=== PATIENT | female | born 1930 | race Caucasian/White ===

== ENCOUNTER 2018-11-24 13:07 | Emergency (ER) | payer MEDICARE, MEDICAID ==
[~2018-11-24] VITALS: Ht 157.5 cm; Wt 60.0 kg
[~2018-11-24 13:07] MED LIST: ACET-3161 PO; ASPI-1393 PO; CHOL100046 PO; CRES10 PO; FERR-43 PO; ISOS60TA4 PO; LEVO50TA8 PO; LINA1TAB PO; LUBI24CA5 PO; MELO-106 PO; METO100T16 PO; SIME125C PO; TRAM50TA PO; VALS320T16 PO
[2018-11-24 13:15] VITALS: BP 131/65
== END 2018-11-24 17:03 | disposition left against medical advice (07) ==
LOC: ER 14:21
DX: Z53.21 Procedure and treatment not carried out due to patient leaving prior to being seen by health care provider (principal); I10 Essential (primary) hypertension
CPT/HCPCS: 93005

== ENCOUNTER 2018-11-25 17:49 | Inpatient (IN) | payer MEDICARE, MEDICAID ==
[~2018-11-25] VITALS: Ht 157.5 cm; Wt 62.1 kg
[2018-11-25] MEDS ORDERED: SODIUM CHLORIDE 0.9% 1,000 ML IV ONE (18:57)
[2018-11-25] MEDS ORDERED: ONDANSETRON HCL 4MG/2ML INJ IV STA (18:57)
[2018-11-25 19:38] LABS: BASOPHILS % 0.6 % (0.0-2.0); EOSINOPHILS % 2.1 % (0.0-5.0); HEMATOCRIT. 39.8 % (36.0-48.0); HEMOGLOBIN. 13.1 g/dL (12.0-16.0); LYMPHOCYTES % 21.2 % (20.0-50.0); MEAN CORPUSCULAR HEMOGLOBIN 30.8 pg (28.0-32.0); MEAN CORPUSCULAR VOLUME 93.3 fL (81.0-99.0); MEAN PLATELET VOLUME 9.1 fl (7.4-10.4); MONOCYTES % 10.4 % (2.0-8.0); NEUTROPHILS % 65.7 % (40.0-76.0); PLATELET 272 x1000/uL (130-400); RED BLOOD CELL COUNT 4.26 mill/uL (4.2-5.4); RED CELL DISTRIBUTION WIDTH 14.6 % (11.6-14.6)
[2018-11-25 19:41] LABS: CHLORIDE 96 mEq/L (98-107); INR 0.9; PROTHROMBIN TIME 9.8 sec (9.6-11.0)
[2018-11-25] MEDS ORDERED: HYDRALAZINE 20MG/ML VIAL IV ONE (20:00)
[2018-11-25] MEDS ORDERED: ALBUTEROL (0.083%) 2.5MG/3ML NEB HHN SCH (20:30)
[2018-11-25] MEDS ORDERED: FUROSEMIDE 100MG/10ML VIAL IV ONE (20:30)
[2018-11-25] MEDS ORDERED: DEXTROSE 50% WATER 50ML SYRINGE IV ONE (20:30)
[2018-11-25] MEDS ORDERED: SODIUM BICARBONATE 8.4% 1 MEQ/ML 50ML SYR IV ONE (20:30)
[2018-11-25] MEDS ORDERED: CALCIUM GLUCONATE 1,000 MG in DEXT 5% WATER 100 ML IV ONE (20:30)
[2018-11-25] MEDS ORDERED: SODIUM POLYSTYRENE SULFONATE 15 G/60 ML BOT PO ONE (20:30)
[2018-11-25] MEDS ORDERED: INSULIN REGULAR (HUMULIN R) 300UNITS/3ML IV ONE (20:30)
[2018-11-25] MEDS ORDERED: DIPHENHYDRAMINE 50MG/ML VIAL IV PRN (21:15)
[2018-11-25] MEDS ORDERED: GUAIFENESIN 200MG/10ML SUGAR FREE UDC PO PRN (21:15)
[2018-11-25] MEDS ORDERED: IPRATROPIUM/ALBUTEROL 0.5-3(2.5)MG/3ML NEB HHN PRN (21:15)
[2018-11-25] MEDS ORDERED: CLONIDINE 0.1MG TABLET PO PRN (21:15)
[2018-11-25] MEDS ORDERED: MAGNESIUM/ALUMINUM HYDROXIDE/SIMETHICONE 30ML UDC PO PRN (21:15)
[2018-11-25] MEDS ORDERED: DOCUSATE SODIUM 100MG CAPSULE PO PRN (21:15)
[2018-11-25] MEDS ORDERED: LORAZEPAM 2MG/ML CPJ IV PRN (21:15)
[2018-11-25] MEDS ORDERED: DEXTROSE 50% WATER 50ML SYRINGE IV PRN (21:15)
[2018-11-25] MEDS ORDERED: HYDRALAZINE 20MG/ML VIAL IV PRN (21:15)
[2018-11-25] MEDS ORDERED: ONDANSETRON HCL 4MG/2ML INJ IV PRN (21:15)
[2018-11-25] MEDS ORDERED: NA PHOS,M-B/NA PHOS,DI-BA ENEMA 118ML PR PRN (22:00)
[2018-11-25] MEDS ORDERED: MORPHINE SULFATE 2 MG/ML CPJ (NOT FOR IM USE) IV PRN (22:30)
[2018-11-25] MEDS ORDERED: HYDROCODONE/ACETAMINOPHEN 10/325MG TABLET PO PRN (22:30)
[2018-11-25 23:30] VITALS: BP 131/37
[2018-11-26] VITALS: BP 131/37
[2018-11-26] MEDS: ACETAMINOPHEN 325MG TABLET PO PRN ×3 (00:43→22:18)
[2018-11-26 03:31] LABS: BASOPHILS % 0.2 % (0.0-2.0); CHLORIDE 100 mEq/L (98-107); EOSINOPHILS % 0.4 % (0.0-5.0); HEMATOCRIT. 33.9 % (36.0-48.0); HEMOGLOBIN. 11.5 g/dL (12.0-16.0); LYMPHOCYTES % 14.1 % (20.0-50.0); MEAN CORPUSCULAR HEMOGLOBIN 30.8 pg (28.0-32.0); MEAN CORPUSCULAR VOLUME 91.1 fL (81.0-99.0); MEAN PLATELET VOLUME 8.9 fl (7.4-10.4); MONOCYTES % 8.7 % (2.0-8.0); NEUTROPHILS % 76.6 % (40.0-76.0); PLATELET 261 x1000/uL (130-400); RED BLOOD CELL COUNT 3.72 mill/uL (4.2-5.4); RED CELL DISTRIBUTION WIDTH 14.3 % (11.6-14.6)
[2018-11-26 03:40] LABS: CREATINE KINASE 106 IU/L (26-192)
[2018-11-26 03:42] LABS: CREATINE KINASE MB FRACTION 2.1 ng/mL (0.5-3.6)
[2018-11-26 04:00] VITALS: BP 136/49
[2018-11-26] MEDS: SODIUM CHLORIDE 0.9% INJ 3ML FLUSH IVF SCH ×3 (06:39→20:50)
[2018-11-26] MEDS: BLOOD SUGAR DIAGNOSTIC STRIP TEST SCH ×4 (07:04→20:50)
[2018-11-26] MEDS: INSULIN LISPRO 100 UNITS/ML SUBCUT SCH ×4 (07:50→20:51)
[2018-11-26 08:00] VITALS: BP 130/37
[2018-11-26] MEDS: ENOXAPARIN 30MG/0.3ML SYR SUBCUT SCH (08:51)
[2018-11-26 12:00] VITALS: BP 148/50
[2018-11-26] MEDS: MEGESTROL ACETATE 400 MG/10 ML UDC PO SCH (12:46)
[2018-11-26] MEDS: PANTOPRAZOLE 40MG DR TABLET PO SCH (12:46)
[2018-11-26] MEDS: SODIUM CHLORIDE 0.45% 1,000 ML IV SCH (12:47)
[2018-11-26 16:00] VITALS: BP 137/44
[2018-11-26 16:37] LABS: CREATINE KINASE 81 IU/L (26-192)
[2018-11-26 19:39] LABS: CLARITY URINE CLEAR (CLEAR); COLOR URINE YELLOW (YELLOW); KETONES URINE NEGATIVE (NEGATIVE); LEUKOCYTE ESTERASE URINE NEGATIVE (NEGATIVE); NITRITE URINE NEGATIVE (NEGATIVE); OCCULT BLOOD URINE NEGATIVE (NEGATIVE); PROTEIN URINE 2+ (NEGATIVE); SPECIFIC GRAVITY URINE 1.012 (1.005-1.030); UROBILINOGEN URINE 0.2 E.U./dL (0.2-1.0)
[2018-11-26 20:36] VITALS: BP 118/42
[2018-11-27] VITALS: BP 115/43
[2018-11-27] MEDS: SODIUM CHLORIDE 0.45% 1,000 ML IV SCH ×2 (03:15→18:00)
[2018-11-27 04:00] VITALS: BP 126/54
[2018-11-27] MEDS: SODIUM CHLORIDE 0.9% INJ 3ML FLUSH IVF SCH ×3 (05:50→21:18)
[2018-11-27] MEDS: BLOOD SUGAR DIAGNOSTIC STRIP TEST SCH ×4 (06:37→21:18)
[2018-11-27] MEDS: INSULIN LISPRO 100 UNITS/ML SUBCUT SCH ×4 (07:50→21:17)
[2018-11-27 08:00] VITALS: BP 145/46
[2018-11-27] MEDS: ENOXAPARIN 30MG/0.3ML SYR SUBCUT SCH (09:03)
[2018-11-27] MEDS: PANTOPRAZOLE 40MG DR TABLET PO SCH (09:03)
[2018-11-27] MEDS: MEGESTROL ACETATE 400 MG/10 ML UDC PO SCH (09:03)
[2018-11-27 12:00] VITALS: BP 124/44
[2018-11-27 16:00] VITALS: BP 133/47
[2018-11-27 20:00] VITALS: BP 118/37
[2018-11-27] MEDS: ACETAMINOPHEN 325MG TABLET PO PRN (21:54)
[2018-11-28] VITALS: BP 118/62
[2018-11-28 03:50] VITALS: BP 137/74
[2018-11-28] MEDS: SODIUM CHLORIDE 0.9% INJ 3ML FLUSH IVF SCH ×2 (05:28→14:59)
[2018-11-28] MEDS: SODIUM CHLORIDE 0.45% 1,000 ML IV SCH ×2 (05:28→17:35)
[2018-11-28] MEDS: FAMOTIDINE 20MG TABLET PO SCH (05:58)
[2018-11-28] MEDS: BLOOD SUGAR DIAGNOSTIC STRIP TEST SCH ×4 (05:58→21:12)
[2018-11-28] MEDS: INSULIN LISPRO 100 UNITS/ML SUBCUT SCH ×4 (07:50→21:08)
[2018-11-28 07:52] LABS: BASOPHILS % 0.5 % (0.0-2.0); EOSINOPHILS % 4.6 % (0.0-5.0); HEMATOCRIT. 27.6 % (36.0-48.0); HEMOGLOBIN. 9.3 g/dL (12.0-16.0); LYMPHOCYTES % 28.3 % (20.0-50.0); MEAN CORPUSCULAR HEMOGLOBIN 30.7 pg (28.0-32.0); MEAN CORPUSCULAR VOLUME 91.1 fL (81.0-99.0); MEAN PLATELET VOLUME 9.3 fl (7.4-10.4); MONOCYTES % 7.9 % (2.0-8.0); NEUTROPHILS % 58.7 % (40.0-76.0); PLATELET 229 x1000/uL (130-400); RED BLOOD CELL COUNT 3.03 mill/uL (4.2-5.4); RED CELL DISTRIBUTION WIDTH 14.3 % (11.6-14.6)
[2018-11-28 08:00] VITALS: BP 139/63
[2018-11-28 09:06] LABS: COMPLEMENT C3 108 mg/dL (82-167)
[2018-11-28] MEDS: MEGESTROL ACETATE 400 MG/10 ML UDC PO SCH (09:25)
[2018-11-28] MEDS: ENOXAPARIN 30MG/0.3ML SYR SUBCUT SCH (09:26)
[2018-11-28 12:00] VITALS: BP 135/46
[2018-11-28 16:00] VITALS: BP 121/43
[2018-11-28] MEDS: METOPROLOL TARTRATE 100MG TABLET PO SCH (21:00)
[2018-11-28] MEDS ORDERED: MEDICATION NOT ON FORMULARY EA (Rosuvastatin Calcium (Crestor) 10 MG) PO SCH (21:00)
[2018-11-28] MEDS: ATORVASTATIN CALCIUM 20MG TABLET PO SCH (21:12)
[2018-11-29] VITALS: BP 143/41
[2018-11-29] MEDS: SODIUM CHLORIDE 0.9% INJ 3ML FLUSH IVF SCH ×4 (00:51→20:54)
[2018-11-29 04:00] VITALS: BP 138/37
[2018-11-29] MEDS: SODIUM CHLORIDE 0.45% 1,000 ML IV SCH ×2 (05:34→20:55)
[2018-11-29] MEDS: BLOOD SUGAR DIAGNOSTIC STRIP TEST SCH ×4 (06:32→20:54)
[2018-11-29] MEDS: FAMOTIDINE 20MG TABLET PO SCH (06:32)
[2018-11-29] MEDS: INSULIN LISPRO 100 UNITS/ML SUBCUT SCH ×4 (07:50→20:50)
[2018-11-29 08:00] VITALS: BP 139/41
[2018-11-29] MEDS: METOPROLOL TARTRATE 100MG TABLET PO SCH ×2 (09:00→20:52)
[2018-11-29] MEDS ORDERED: MEDICATION NOT ON FORMULARY EA (Valsartan 320 MG) PO SCH (09:00)
[2018-11-29] MEDS ORDERED: LEVOTHYROXINE SODIUM 50MCG TABLET PO SCH (09:00)
[2018-11-29] MEDS ORDERED: LACTULOSE 20G/30ML UDC PO NR (09:15)
[2018-11-29] MEDS: ENOXAPARIN 30MG/0.3ML SYR SUBCUT SCH (09:36)
[2018-11-29] MEDS: MEGESTROL ACETATE 400 MG/10 ML UDC PO SCH (09:36)
[2018-11-29] MEDS: LOSARTAN POTASSIUM 100 MG TABLET PO SCH (09:37)
[2018-11-29 12:00] VITALS: BP 111/54
[2018-11-29 16:00] VITALS: BP 127/40
[2018-11-29 19:10] LABS: ANTI-NUCLEAR ANTIBODIES DIRECT Negative (Negative)
[2018-11-29 20:00] VITALS: BP 122/41
[2018-11-29] MEDS: ATORVASTATIN CALCIUM 20MG TABLET PO SCH (20:54)
[2018-11-30] VITALS: BP 123/75
[2018-11-30 04:00] VITALS: BP 129/58
[2018-11-30] MEDS: SODIUM CHLORIDE 0.9% INJ 3ML FLUSH IVF SCH (05:51)
[2018-11-30] MEDS ORDERED: LEVOTHYROXINE SODIUM 50MCG TABLET PO SCH (06:00)
[2018-11-30] MEDS: FAMOTIDINE 20MG TABLET PO SCH (06:23)
[2018-11-30] MEDS: BLOOD SUGAR DIAGNOSTIC STRIP TEST SCH (06:23)
[2018-11-30] MEDS: INSULIN LISPRO 100 UNITS/ML SUBCUT SCH (07:43)
[2018-11-30 08:00] VITALS: BP 168/51
[2018-11-30] MEDS: ENOXAPARIN 30MG/0.3ML SYR SUBCUT SCH (08:05)
[2018-11-30] MEDS: MEGESTROL ACETATE 400 MG/10 ML UDC PO SCH (08:05)
[2018-11-30] MEDS: METOPROLOL TARTRATE 100MG TABLET PO SCH (08:06)
[2018-11-30] MEDS: LOSARTAN POTASSIUM 100 MG TABLET PO SCH (08:06)
[2018-11-30] MEDS ORDERED: ISOSORBIDE MONONITRATE 60MG TABLET SR 24HR PO SCH (09:00)
[2018-11-30] MEDS: SODIUM CHLORIDE 0.45% 1,000 ML IV SCH (09:24)
[2018-11-30] MEDS ORDERED: DILTIAZEM HCL 180MG CAPSULE CD 24HR PO SCH (09:30)
[2018-11-30 10:23] VITALS: BP 158/46
[2018-11-30] MEDS ORDERED: LEVOFLOXACIN 250MG TABLET PO SCH (11:00)
[2018-11-30 12:10] VITALS: BP 158/46
[2018-11-30] MEDS ORDERED: PHENAZOPYRIDINE HCL 100MG TABLET PO SCH (12:50)
== END 2018-11-30 12:52 | disposition home or self-care (01) | DRG 682 ==
LOC: ER 18:09 → 6WST 20:29 → EDBEDREQ 20:32 → EDBEDREQTM 20:32 → ENRESERV 22:06
PROVIDERS: ADMIT Internal Medicine; ATTEND Internal Medicine
DX: I12.9 Hypertensive chronic kidney disease with stage 1 through stage 4 chronic kidney disease, or unspecified chronic kidney disease (principal); N17.0 Acute kidney failure with tubular necrosis; E87.1 Hypo-osmolality and hyponatremia; E87.5 Hyperkalemia; I25.118 Atherosclerotic heart disease of native coronary artery with other forms of angina pectoris; N18.9 Chronic kidney disease, unspecified; E11.22 Type 2 diabetes mellitus with diabetic chronic kidney disease; E78.00 Pure hypercholesterolemia, unspecified; K21.9 Gastro-esophageal reflux disease without esophagitis; D64.9 Anemia, unspecified; E03.9 Hypothyroidism, unspecified; E78.5 Hyperlipidemia, unspecified; Z95.5 Presence of coronary angioplasty implant and graft; Z86.73 Personal history of transient ischemic attack (TIA), and cerebral infarction without residual deficits; Z95.1 Presence of aortocoronary bypass graft; Z79.899 Other long term (current) drug therapy; Z79.82 Long term (current) use of aspirin
CPT/HCPCS: 36415; 71045; 74176; 76770; 80048; 81003; 82550; 82553; 82575; 82962; 83880; 84484; 86038; 86160; 93005; 93306; 93970; 96374; 99291; A6261; C1893; J0360; J0610; J1650; J1815; J1940; J2060; J2405; J3490; J7030; J7060; A4315

== ENCOUNTER 2019-03-30 03:07 | Inpatient (IN) | payer MEDICARE, MEDICAID ==
[2019-03-30] VITALS (54 sets, daily range): BP systolic 112–187; BP diastolic 40–132
[~2019-03-30] VITALS: Ht 167.6 cm; Wt 62.3 kg
[~2019-03-30 03:07] MED LIST changes: -ASPI-1393 PO; +ASPI-1497 PO; -CRES10 PO; -ISOS60TA4 PO; -METO100T16 PO; -VALS320T16 PO
[2019-03-30] MEDS ORDERED: MIDAZOLAM HCL 2 MG/2 ML VIAL ONE (03:21)
[2019-03-30] MEDS ORDERED: SUCCINYLCHOLINE CHLORIDE 200MG/10ML IV ONE (03:30)
[2019-03-30] MEDS ORDERED: ETOMIDATE 2MG/ML 10ML VIAL IV ONE (03:30)
[2019-03-30] MEDS ORDERED: FENTANYL CITRATE/PF 500 MCG in SODIUM CHLORIDE 0.9% 40 ML IV PRN ×5 (03:45→08:30)
[2019-03-30] MEDS ORDERED: MIDAZOLAM HCL 2 MG/2 ML VIAL IV ONE (04:00)
[2019-03-30 04:17] LABS: BASOPHILS % 0.5 % (0.0-2.0); HEMOGLOBIN. 8.9 g/dL (12.0-16.0); LYMPHOCYTES % 25.7 % (20.0-50.0); MEAN CORPUSCULAR HEMOGLOBIN 31.3 pg (28.0-32.0); MONOCYTES % 6.3 % (2.0-8.0); NEUTROPHILS % 64.5 % (40.0-76.0); PLATELET 182 x1000/uL (130-400); RED BLOOD CELL COUNT 2.84 mill/uL (4.2-5.4); RED CELL DISTRIBUTION WIDTH 13.8 % (11.6-14.6)
[2019-03-30 04:19] LABS: CHLORIDE 105 mEq/L (98-107)
[2019-03-30 04:22] LABS: INR 1.1; PARTIAL THROMBOPLASTIN TIME 24.3 sec (23.4-31.0); PROTHROMBIN TIME 11.4 sec (9.6-11.0)
[2019-03-30 04:23] LABS: ETHANOL BLOOD < 10 mg/dL
[2019-03-30 04:33] LABS: BG BASE EXCESS -0.7 mmol/L (-2.0-2.0); BG CARBOXYHEMOGLOBIN 0.2 % (0.5-1.5); BG DEOXYHEMOGLOBIN 0.8 % (0.0-5.0); BG FRACTION INSPIRED OXYGEN 100; BG METHEMOGLOBIN 0.3 % (0.0-1.5); BG OXYGEN SATURATION 99.2 % (92.0-98.5); BG OXYHEMOGLOBIN 98.7 % (94.0-97.0); BG PCO2 39.8 mmHg (35.0-45.0); BG PH 7.398 (7.350-7.450); BG PO2 336.9 mmHg (75.0-100.0); BG SAMPLE SITE RIGHT BRACHIAL; BG TIDAL VOLUME(mL) 500 mL; BG TOTAL HEMOGLOBIN 9.3 g/dL (12.0-18.0); BG VENT MODE VENT - A/C; BG VENT RATE 14 set
[2019-03-30 06:06] LABS: CLARITY URINE CLEAR (CLEAR); COLOR URINE YELLOW (YELLOW); KETONES URINE NEGATIVE (NEGATIVE); LEUKOCYTE ESTERASE URINE NEGATIVE (NEGATIVE); NITRITE URINE NEGATIVE (NEGATIVE); OCCULT BLOOD URINE NEGATIVE (NEGATIVE); PH URINE 6.5 (4.5-8.0); PROTEIN URINE 1+ (NEGATIVE); SPECIFIC GRAVITY URINE 1.013 (1.005-1.030); UROBILINOGEN URINE 0.2 E.U./dL (0.2-1.0)
[2019-03-30 06:37] LABS: *AMPHETAMINES SCREEN URINE NEGATIVE (NEGATIVE); *BARBITURATES SCREEN URINE NEGATIVE (NEGATIVE); *BENZODIAZEPINES SCREEN URINE PRESUMTIVE POSITIVE (NEGATIVE); *COCAINE SCREEN URINE NEGATIVE (NEGATIVE)
[2019-03-30 06:38] LABS: CANNABINOID URINE SCREEN NEGATIVE (NEGATIVE); METHADONE URINE SCREEN NEGATIVE (NEGATIVE); OPIATES URINE SCREEN NEGATIVE (NEGATIVE); PHENCYCLIDINE URINE SCREEN NEGATIVE (NEGATIVE)
[2019-03-30] MEDS ORDERED: LORAZEPAM 2MG/ML CPJ IV ONE (08:45)
[2019-03-30] MEDS ORDERED: MAGNESIUM/ALUMINUM HYDROXIDE/SIMETHICONE 30ML UDC PO PRN (09:15)
[2019-03-30] MEDS ORDERED: IPRATROPIUM/ALBUTEROL 0.5-3(2.5)MG/3ML NEB NEB PRN (09:15)
[2019-03-30] MEDS ORDERED: NITROGLYCERIN 0.4MG TABLET SL SL PRN (09:15)
[2019-03-30] MEDS ORDERED: ONDANSETRON HCL 4MG/2ML INJ IV PRN (09:15)
[2019-03-30] MEDS ORDERED: CLONIDINE 0.1MG TABLET PO PRN (09:15)
[2019-03-30] MEDS ORDERED: ACETAMINOPHEN 325MG TABLET PO PRN (09:15)
[2019-03-30] MEDS ORDERED: KETOROLAC 15MG/ML VIAL IV PRN (09:15)
[2019-03-30] MEDS ORDERED: GLUCAGON,HUMAN RECOMBINANT 1MG/VIAL IM NR (09:30)
[2019-03-30] MEDS ORDERED: CALCIUM CHLORIDE 1,000 MG in DEXT 5% WATER 90 ML IV ONE (09:30)
[2019-03-30] MEDS ORDERED: CALCIUM CHLORIDE 1GM/10ML SYR IV ONE (09:39)
[2019-03-30 10:39] LABS: T4 FREE 1.09 ng/dL (0.76-1.46)
[2019-03-30 10:56] LABS: FOLIC ACID (FOLATE) SERUM > 20.00 ng/mL (>5.38)
[2019-03-30] MEDS ORDERED: ASPIRIN 325MG EC TABLET PO SCH (11:00)
[2019-03-30 11:02] LABS: VITAMIN B12 SERUM 1091 pg/mL (211-911)
[2019-03-30] MEDS: PANTOPRAZOLE SODIUM 40 MG/VIAL IV SCH (11:25)
[2019-03-30] MEDS: BLOOD SUGAR DIAGNOSTIC STRIP TEST SCH ×4 (11:30→23:51)
[2019-03-30] MEDS ORDERED: INSULIN GLARGINE UD 100 UNITS/ML SYR SUBCUT SCH (12:00)
[2019-03-30] MEDS ORDERED: INSULIN LISPRO 100 UNITS/ML SUBCUT SCH (12:00)
[2019-03-30] MEDS: IPRATROPIUM/ALBUTEROL 0.5-3(2.5)MG/3ML NEB HHN SCH ×3 (12:58→20:40)
[2019-03-30] MEDS ORDERED: DILT180C87 PO (13:16)
[2019-03-30] MEDS ORDERED: DOCU-150 PO (13:16)
[2019-03-30] MEDS ORDERED: FOLI0.8T23 PO (13:16)
[2019-03-30] MEDS ORDERED: LINA5TAB PO (13:16)
[2019-03-30] MEDS ORDERED: ATOR20TA65 PO (13:16)
[2019-03-30] MEDS ORDERED: FURO20TA4 PO (13:16)
[2019-03-30] MEDS ORDERED: FUROSEMIDE 20MG/2ML VIAL IVP NR (13:30)
[2019-03-30] MEDS ORDERED: NEBI10TA2 PO (14:42)
[2019-03-30] MEDS ORDERED: OLME40TA18 PO (14:42)
[2019-03-30] MEDS: CLONIDINE 0.1MG TABLET NG PRN (16:18)
[2019-03-30] MEDS: ENOXAPARIN 30MG/0.3ML SYR SUBCUT SCH (16:19)
[2019-03-30] MEDS: DEXT 5%/LACTATED RINGERS 1,000 ML IV SCH ×2 (16:26→21:54)
[2019-03-30 16:49] LABS: CREATINE KINASE MB FRACTION 1.6 ng/mL (0.5-3.6)
[2019-03-30] MEDS ORDERED: LEVOTHYROXINE SODIUM 88MCG TABLET PO NR (17:30)
[2019-03-30] MEDS: DEXTROSE 50% WATER 50ML SYRINGE IV PRN ×2 (17:44→23:51)
[2019-03-30] MEDS: INSULIN LISPRO 100 UNITS/ML SUBCUT SCH ×2 (18:00→23:52)
[2019-03-31] VITALS (87 sets, daily range): BP systolic 83–212; BP diastolic 26–146
[2019-03-31] MEDS: IPRATROPIUM/ALBUTEROL 0.5-3(2.5)MG/3ML NEB HHN SCH ×6 (00:06→19:57)
[2019-03-31] MEDS ORDERED: FENTANYL CITRATE/PF 500 MCG in SODIUM CHLORIDE 0.9% 40 ML IV PRN (02:30)
[2019-03-31] MEDS: BLOOD SUGAR DIAGNOSTIC STRIP TEST SCH ×3 (06:00→17:27)
[2019-03-31] MEDS: INSULIN LISPRO 100 UNITS/ML SUBCUT SCH ×3 (06:00→17:27)
[2019-03-31] MEDS: LEVOTHYROXINE SODIUM 88MCG TABLET PO SCH (06:30)
[2019-03-31 08:23] LABS: BG BASE EXCESS -0.9 mmol/L (-2.0-2.0); BG CARBOXYHEMOGLOBIN 0.3 % (0.5-1.5); BG DEOXYHEMOGLOBIN 2.7 % (0.0-5.0); BG FRACTION INSPIRED OXYGEN 40; BG HCO3 ACT 23.5 mmol/L (22.0-26.0); BG METHEMOGLOBIN 0.2 % (0.0-1.5); BG OXYGEN SATURATION 97.3 % (92.0-98.5); BG OXYHEMOGLOBIN 96.8 % (94.0-97.0); BG PCO2 37.8 mmHg (35.0-45.0); BG PH 7.411 (7.350-7.450); BG PO2 110.3 mmHg (75.0-100.0); BG SAMPLE SITE RIGHT RADIAL; BG TIDAL VOLUME(mL) 500 mL; BG TOTAL HEMOGLOBIN 9.6 g/dL (12.0-18.0); BG VENT MODE VENT - A/C; BG VENT RATE 14 set
[2019-03-31] MEDS ORDERED: ASPIRIN 81MG TABLET NG SCH (10:15)
[2019-03-31] MEDS: PANTOPRAZOLE SODIUM 40 MG/VIAL IV SCH (10:20)
[2019-03-31] MEDS: ENOXAPARIN 30MG/0.3ML SYR SUBCUT SCH (10:21)
[2019-03-31] MEDS ORDERED: INSULIN GLARGINE UD 100 UNITS/ML SYR SUBCUT SCH (11:00)
[2019-03-31 11:22] LABS: CREATINE KINASE 110 IU/L (26-192); CREATINE KINASE MB FRACTION < 1.0 ng/mL (0.5-3.6)
[2019-03-31 11:45] LABS: BG BASE EXCESS 1.7 mmol/L (-2.0-2.0); BG CARBOXYHEMOGLOBIN 0.3 % (0.5-1.5); BG DEOXYHEMOGLOBIN 3.7 % (0.0-5.0); BG FRACTION INSPIRED OXYGEN 35; BG HCO3 ACT 25.7 mmol/L (22.0-26.0); BG METHEMOGLOBIN 0.2 % (0.0-1.5); BG OXYGEN SATURATION 96.3 % (92.0-98.5); BG OXYHEMOGLOBIN 95.8 % (94.0-97.0); BG PCO2 37.5 mmHg (35.0-45.0); BG PH 7.453 (7.350-7.450); BG PO2 86.4 mmHg (75.0-100.0); BG PRESSURE SUPPORT 8; BG SAMPLE SITE RIGHT RADIAL; BG TOTAL HEMOGLOBIN 9.9 g/dL (12.0-18.0); BG VENT MODE VENT - CPAP
[2019-03-31] MEDS: ASPIRIN 325MG TABLET PO SCH (11:46)
[2019-03-31] MEDS: CLONIDINE 0.1MG TABLET NG PRN ×2 (11:46→22:39)
[2019-03-31] MEDS: DEXTROSE 50% WATER 50ML SYRINGE IV PRN (11:54)
[2019-03-31] MEDS: DEXT 5%/LACTATED RINGERS 1,000 ML IV SCH (11:55)
[2019-03-31] MEDS: LOSARTAN POTASSIUM 50 MG TABLET PO SCH (14:20)
[2019-03-31] MEDS: INSULIN GLARGINE UD 100 UNITS/ML SYR SUBCUT SCH (14:22)
[2019-03-31 21:43] LABS: HEMATOCRIT 28.7 % (36.0-48.0); HEMOGLOBIN 9.6 g/dL (12.0-16.0); MEAN CORPUSCULAR HEMOGLOBIN 31.7 pg (28.0-32.0); MEAN CORPUSCULAR VOLUME 94.7 fL (81.0-99.0); PLATELET 199 x1000/uL (130-400); RED BLOOD CELL COUNT 3.04 mill/uL (4.2-5.4); RED CELL DISTRIBUTION WIDTH 13.8 % (11.6-14.6)
[2019-03-31] MEDS: AMLODIPINE 5MG TABLET PO SCH (21:48)
[2019-03-31] MEDS: RACEPINEPHRINE 2.25% 0.5ML NEB VIAL HHN PRN (23:34)
[2019-03-31 23:51] LABS: BG CARBOXYHEMOGLOBIN 0.3 % (0.5-1.5); BG FRACTION INSPIRED OXYGEN 50; BG HCO3 ACT 26.3 mmol/L (22.0-26.0); BG METHEMOGLOBIN 0.3 % (0.0-1.5); BG OXYHEMOGLOBIN 92.4 % (94.0-97.0); BG PCO2 70.4 mmHg (35.0-45.0); BG PO2 82.5 mmHg (75.0-100.0); BG SAMPLE SITE RIGHT BRACHIAL; BG TOTAL HEMOGLOBIN 11.3 g/dL (12.0-18.0)
[2019-04-01] VITALS (41 sets, daily range): BP systolic 91–200; BP diastolic 36–127
[2019-04-01] MEDS ORDERED: FUROSEMIDE 40MG/4ML VIAL IVP NR (00:30)
[2019-04-01] MEDS: IPRATROPIUM/ALBUTEROL 0.5-3(2.5)MG/3ML NEB HHN SCH ×6 (00:33→20:42)
[2019-04-01] MEDS: BLOOD SUGAR DIAGNOSTIC STRIP TEST SCH ×5 (00:36→23:10)
[2019-04-01] MEDS: INSULIN LISPRO 100 UNITS/ML SUBCUT SCH ×5 (00:49→23:15)
[2019-04-01] MEDS: DEXT 5%/LACTATED RINGERS 1,000 ML IV SCH ×2 (05:42→14:32)
[2019-04-01] MEDS: LEVOTHYROXINE SODIUM 88MCG TABLET PO SCH (06:11)
[2019-04-01] MEDS ORDERED: POTASSIUM CHLORIDE 20MEQ/PACKET PO SCH (07:45)
[2019-04-01] MEDS ORDERED: FUROSEMIDE 40MG/4ML VIAL IVP SCH (07:45)
[2019-04-01] MEDS: RACEPINEPHRINE 2.25% 0.5ML NEB VIAL HHN PRN ×2 (08:35→20:58)
[2019-04-01] MEDS: PANTOPRAZOLE SODIUM 40 MG/VIAL IV SCH (08:52)
[2019-04-01] MEDS: ASPIRIN 325MG TABLET PO SCH (08:52)
[2019-04-01] MEDS: DOCUSATE SODIUM 100MG CAPSULE PO PRN (08:53)
[2019-04-01] MEDS: LOSARTAN POTASSIUM 50 MG TABLET PO SCH ×2 (08:53→21:00)
[2019-04-01] MEDS: AMLODIPINE 5MG TABLET PO SCH ×2 (08:53→20:31)
[2019-04-01] MEDS: ENOXAPARIN 30MG/0.3ML SYR SUBCUT SCH (08:55)
[2019-04-01 09:53] LABS: BG BASE EXCESS 0.5 mmol/L (-2.0-2.0); BG CARBOXYHEMOGLOBIN 0.3 % (0.5-1.5); BG DEOXYHEMOGLOBIN 7.6 % (0.0-5.0); BG HCO3 ACT 24.7 mmol/L (22.0-26.0); BG METHEMOGLOBIN 0.1 % (0.0-1.5); BG OXYGEN SATURATION 92.4 % (92.0-98.5); BG PO2 61.5 mmHg (75.0-100.0); BG SAMPLE SITE RIGHT RADIAL; BG TOTAL HEMOGLOBIN 10.5 g/dL (12.0-18.0); BG VENT MODE NASAL CANNULA
[2019-04-01] MEDS ORDERED: LIDOCAINE HCL/PF 1% 2ML VIAL ONE (10:54)
[2019-04-01] MEDS: INSULIN GLARGINE UD 100 UNITS/ML SYR SUBCUT SCH (11:15)
[2019-04-01] MEDS ORDERED: PHENOL/SODIUM PHENOLATE 1.4% SRPAY 177ML MM ONE (12:00)
[2019-04-01] MEDS: PHENOL/SODIUM PHENOLATE 1.4% SRPAY 177ML MM PRN (22:46)
[2019-04-01] MEDS: CLONIDINE 0.1MG TABLET NG PRN (23:11)
[2019-04-02] VITALS (21 sets, daily range): BP systolic 115–179; BP diastolic 37–79
[2019-04-02] MEDS: IPRATROPIUM/ALBUTEROL 0.5-3(2.5)MG/3ML NEB HHN SCH ×6 (00:23→20:53)
[2019-04-02] MEDS: INSULIN LISPRO 100 UNITS/ML SUBCUT SCH ×3 (06:00→18:00)
[2019-04-02] MEDS: BLOOD SUGAR DIAGNOSTIC STRIP TEST SCH ×3 (06:03→18:33)
[2019-04-02 06:10] LABS: BASOPHILS % 0.3 % (0.0-2.0); EOSINOPHILS % 1.2 % (0.0-5.0); HEMATOCRIT. 27.4 % (36.0-48.0); LYMPHOCYTES % 8.6 % (20.0-50.0); MEAN CORPUSCULAR VOLUME 94.4 fL (81.0-99.0); MEAN PLATELET VOLUME 9.3 fl (7.4-10.4); MONOCYTES % 6.7 % (2.0-8.0); NEUTROPHILS % 83.2 % (40.0-76.0); PHOSPHORUS 3.2 mg/dL (2.5-4.9); PLATELET 202 x1000/uL (130-400); RED BLOOD CELL COUNT 2.91 mill/uL (4.2-5.4); RED CELL DISTRIBUTION WIDTH 13.5 % (11.6-14.6)
[2019-04-02] MEDS: LEVOTHYROXINE SODIUM 88MCG TABLET PO SCH (06:31)
[2019-04-02] MEDS: AMLODIPINE 5MG TABLET PO SCH ×2 (08:06→21:35)
[2019-04-02] MEDS: PANTOPRAZOLE SODIUM 40 MG/VIAL IV SCH (08:06)
[2019-04-02] MEDS: PHENOL/SODIUM PHENOLATE 1.4% SRPAY 177ML MM PRN (08:07)
[2019-04-02] MEDS: DOCUSATE SODIUM 100MG CAPSULE PO PRN (08:07)
[2019-04-02] MEDS: ASPIRIN 325MG TABLET PO SCH (08:07)
[2019-04-02] MEDS: CLONIDINE 0.1MG TABLET NG PRN (08:07)
[2019-04-02] MEDS: LOSARTAN POTASSIUM 50 MG TABLET PO SCH ×2 (08:07→16:43)
[2019-04-02] MEDS: ENOXAPARIN 30MG/0.3ML SYR SUBCUT SCH (08:20)
[2019-04-02] MEDS ORDERED: LIDOCAINE HCL 1% 20ML VIAL (Pyxis) INJ ONE (09:11)
[2019-04-02] MEDS: INSULIN GLARGINE UD 100 UNITS/ML SYR SUBCUT SCH (10:28)
[2019-04-02] MEDS: VANCOMYCIN 1 G PREMIX 200 ML IV SCH (12:16)
[2019-04-02] MEDS: RACEPINEPHRINE 2.25% 0.5ML NEB VIAL HHN PRN (21:03)
[2019-04-03] VITALS (16 sets, daily range): BP systolic 122–173; BP diastolic 35–80
[2019-04-03] MEDS: BLOOD SUGAR DIAGNOSTIC STRIP TEST SCH ×5 (00:36→23:39)
[2019-04-03] MEDS: INSULIN LISPRO 100 UNITS/ML SUBCUT SCH ×4 (00:58→18:00)
[2019-04-03] MEDS: IPRATROPIUM/ALBUTEROL 0.5-3(2.5)MG/3ML NEB HHN SCH ×6 (01:00→20:41)
[2019-04-03] MEDS: CLONIDINE 0.1MG TABLET NG PRN (03:24)
[2019-04-03] MEDS: LEVOTHYROXINE SODIUM 88MCG TABLET PO SCH (06:41)
[2019-04-03] MEDS: ASPIRIN 325MG TABLET PO SCH (08:56)
[2019-04-03] MEDS: ENOXAPARIN 40MG/0.4ML SYR SUBCUT SCH (08:56)
[2019-04-03] MEDS: LOSARTAN POTASSIUM 50 MG TABLET PO SCH ×2 (08:56→21:41)
[2019-04-03] MEDS: PANTOPRAZOLE SODIUM 40 MG/VIAL IV SCH (08:56)
[2019-04-03] MEDS: AMLODIPINE 5MG TABLET PO SCH ×2 (08:57→21:41)
[2019-04-03] MEDS: RACEPINEPHRINE 2.25% 0.5ML NEB VIAL HHN PRN ×3 (09:08→16:58)
[2019-04-03] MEDS: INSULIN GLARGINE UD 100 UNITS/ML SYR SUBCUT SCH (09:10)
[2019-04-03] MEDS: DOXAZOSIN MESYLATE 2MG TABLET PO SCH ×2 (11:00→21:42)
[2019-04-03] MEDS: VANCOMYCIN 1 G PREMIX 200 ML IV SCH (13:40)
[2019-04-03] MEDS ORDERED: GUAIFENESIN/DM 600MG/30MG ER TAB 12HR PO PRN (15:30)
[2019-04-03] MEDS: PREDNISONE 20MG TABLET PO SCH (17:23)
[2019-04-03] MEDS: PHENOL/SODIUM PHENOLATE 1.4% SRPAY 177ML MM PRN (17:25)
[2019-04-03] MEDS: FLUTICASONE PROPIONATE 50MCG/SPRAY BOTTLE BOTHNSTRLS SCH (21:42)
[2019-04-04] VITALS (20 sets, daily range): BP systolic 113–154; BP diastolic 40–58
[2019-04-04] MEDS: INSULIN LISPRO 100 UNITS/ML SUBCUT SCH ×4 (00:02→17:11)
[2019-04-04] MEDS: RACEPINEPHRINE 2.25% 0.5ML NEB VIAL HHN PRN (00:03)
[2019-04-04] MEDS: IPRATROPIUM/ALBUTEROL 0.5-3(2.5)MG/3ML NEB HHN SCH ×6 (00:17→21:38)
[2019-04-04] MEDS: LEVOTHYROXINE SODIUM 88MCG TABLET PO SCH (06:08)
[2019-04-04] MEDS: BLOOD SUGAR DIAGNOSTIC STRIP TEST SCH ×3 (06:21→17:06)
[2019-04-04] MEDS: PANTOPRAZOLE SODIUM 40 MG/VIAL IV SCH (08:13)
[2019-04-04] MEDS: ASPIRIN 325MG TABLET PO SCH (08:13)
[2019-04-04] MEDS: PREDNISONE 20MG TABLET PO SCH (08:13)
[2019-04-04] MEDS: DOXAZOSIN MESYLATE 2MG TABLET PO SCH ×2 (08:14→20:23)
[2019-04-04] MEDS: LOSARTAN POTASSIUM 50 MG TABLET PO SCH ×2 (08:14→20:23)
[2019-04-04] MEDS: AMLODIPINE 5MG TABLET PO SCH ×2 (08:14→20:23)
[2019-04-04] MEDS: ENOXAPARIN 40MG/0.4ML SYR SUBCUT SCH (08:14)
[2019-04-04] MEDS: FLUTICASONE PROPIONATE 50MCG/SPRAY BOTTLE BOTHNSTRLS SCH ×2 (08:15→20:22)
[2019-04-04] MEDS: INSULIN GLARGINE UD 100 UNITS/ML SYR SUBCUT SCH (10:38)
[2019-04-04] MEDS: VANCOMYCIN 1 G PREMIX 200 ML IV SCH (12:39)
[2019-04-05] VITALS (15 sets, daily range): BP systolic 124–156; BP diastolic 47–65
[2019-04-05] MEDS: BLOOD SUGAR DIAGNOSTIC STRIP TEST SCH ×5 (00:26→23:43)
[2019-04-05] MEDS: INSULIN LISPRO 100 UNITS/ML SUBCUT SCH ×4 (00:26→17:19)
[2019-04-05] MEDS: IPRATROPIUM/ALBUTEROL 0.5-3(2.5)MG/3ML NEB HHN SCH ×7 (01:11→23:48)
[2019-04-05 06:15] LABS: BASOPHILS % 0.3 % (0.0-2.0); EOSINOPHILS % 0.4 % (0.0-5.0); HEMATOCRIT. 24.6 % (36.0-48.0); HEMOGLOBIN. 8.2 g/dL (12.0-16.0); LYMPHOCYTES % 14.7 % (20.0-50.0); MEAN CORPUSCULAR HEMOGLOBIN 31.2 pg (28.0-32.0); MEAN PLATELET VOLUME 8.6 fl (7.4-10.4); MONOCYTES % 10.1 % (2.0-8.0); NEUTROPHILS % 74.5 % (40.0-76.0); PLATELET 280 x1000/uL (130-400); RED BLOOD CELL COUNT 2.64 mill/uL (4.2-5.4); RED CELL DISTRIBUTION WIDTH 13.4 % (11.6-14.6)
[2019-04-05] MEDS: LEVOTHYROXINE SODIUM 88MCG TABLET PO SCH (06:23)
[2019-04-05] MEDS: ASPIRIN 325MG TABLET PO SCH (09:51)
[2019-04-05] MEDS: LOSARTAN POTASSIUM 50 MG TABLET PO SCH ×2 (09:51→21:31)
[2019-04-05] MEDS: PREDNISONE 20MG TABLET PO SCH (09:51)
[2019-04-05] MEDS: FAMOTIDINE 20MG/2ML VIAL IV SCH (09:51)
[2019-04-05] MEDS: AMLODIPINE 5MG TABLET PO SCH ×2 (09:53→20:41)
[2019-04-05] MEDS: ENOXAPARIN 40MG/0.4ML SYR SUBCUT SCH (09:54)
[2019-04-05] MEDS: FLUTICASONE PROPIONATE 50MCG/SPRAY BOTTLE BOTHNSTRLS SCH ×2 (09:54→20:42)
[2019-04-05] MEDS: DOXAZOSIN MESYLATE 2MG TABLET PO SCH ×2 (09:54→20:41)
[2019-04-05] MEDS: INSULIN GLARGINE UD 100 UNITS/ML SYR SUBCUT SCH (10:58)
[2019-04-05 15:44] LABS: T4 FREE 1.23 ng/dL (0.76-1.46)
[2019-04-05 16:01] LABS: VITAMIN B12 SERUM 1418 pg/mL (211-911)
[2019-04-05 16:11] LABS: FOLIC ACID (FOLATE) SERUM > 20.00 ng/mL (>5.38)
[2019-04-05] MEDS: VANCOMYCIN 750 MG PREMIX 150 ML IV SCH (17:19)
[2019-04-06] VITALS (9 sets, daily range): BP systolic 116–170; BP diastolic 44–82
[2019-04-06] MEDS: INSULIN LISPRO 100 UNITS/ML SUBCUT SCH ×4 (00:01→18:28)
[2019-04-06] MEDS: IPRATROPIUM/ALBUTEROL 0.5-3(2.5)MG/3ML NEB HHN SCH ×4 (04:57→17:34)
[2019-04-06] MEDS: LEVOTHYROXINE SODIUM 88MCG TABLET PO SCH (06:21)
[2019-04-06] MEDS: BLOOD SUGAR DIAGNOSTIC STRIP TEST SCH ×2 (06:21→12:00)
[2019-04-06] MEDS ORDERED: ENOXAPARIN 30MG/0.3ML SYR SUBCUT SCH (09:00)
[2019-04-06] MEDS: ASPIRIN 325MG TABLET PO SCH (09:00)
[2019-04-06] MEDS: PREDNISONE 20MG TABLET PO SCH (09:06)
[2019-04-06] MEDS: AMLODIPINE 5MG TABLET PO SCH (09:06)
[2019-04-06] MEDS: DOXAZOSIN MESYLATE 2MG TABLET PO SCH (09:06)
[2019-04-06] MEDS: LOSARTAN POTASSIUM 50 MG TABLET PO SCH (09:07)
[2019-04-06] MEDS: FLUTICASONE PROPIONATE 50MCG/SPRAY BOTTLE BOTHNSTRLS SCH (09:07)
[2019-04-06] MEDS: FAMOTIDINE 20MG/2ML VIAL IV SCH (09:07)
[2019-04-06] MEDS: VANCOMYCIN 750 MG PREMIX 150 ML IV SCH (09:38)
[2019-04-06] MEDS: INSULIN GLARGINE UD 100 UNITS/ML SYR SUBCUT SCH (11:00)
[2019-04-06] MEDS ORDERED: DOCUSATE SODIUM 100MG CAPSULE PO SCH (18:00)
[2019-04-06] MEDS ORDERED: POLYETHYLENE GLYCOL 3350 (17GM) 1 DOSE PACK PO SCH (21:00)
[2019-04-06] MEDS ORDERED: LACTULOSE 20G/30ML UDC PO SCH (21:00)
== END 2019-04-06 17:45 | DRG 208 ==
LOC: ER 03:07 → MICUNO 04:35 → EDBEDREQTM 04:38 → EDBEDREQ 04:38 → SUPCPDRO 08:51 → ENRESERV 09:33 → 3WST 04-02 17:53 → 6EST 04-06 10:32
PROVIDERS: ADMIT Internal Medicine; ATTEND Internal Medicine
PROC: 5A1935Z Respiratory Ventilation, Less than 24 Consecutive Hours (ICD-10-PCS; principal; 2019-03-30)
PROC: 5A1223Z Performance of Cardiac Pacing, Continuous (ICD-10-PCS; 2019-03-30)
PROC: 0BH17EZ Insertion of Endotracheal Airway into Trachea, Via Natural or Artificial Opening (ICD-10-PCS; 2019-03-30)
PROC: 5A09357 Assistance with Respiratory Ventilation, Less than 24 Consecutive Hours, Continuous Positive Airway Pressure (ICD-10-PCS; 2019-04-01)
PROC: 02HV33Z Insertion of Infusion Device into Superior Vena Cava, Percutaneous Approach (ICD-10-PCS; 2019-04-02)
PROC: B548ZZA Ultrasonography of Superior Vena Cava, Guidance (ICD-10-PCS; 2019-04-02)
DX: J96.02 Acute respiratory failure with hypercapnia (principal); J18.9 Pneumonia, unspecified organism; G92 Toxic encephalopathy; N17.0 Acute kidney failure with tubular necrosis; R57.9 Shock, unspecified; E44.1 Mild protein-calorie malnutrition; I13.0 Hypertensive heart and chronic kidney disease with heart failure and stage 1 through stage 4 chronic kidney disease, or unspecified chronic kidney disease; J44.0 Chronic obstructive pulmonary disease with (acute) lower respiratory infection; L03.113 Cellulitis of right upper limb; I27.20 Pulmonary hypertension, unspecified; E83.51 Hypocalcemia; E78.5 Hyperlipidemia, unspecified; D63.8 Anemia in other chronic diseases classified elsewhere; E11.22 Type 2 diabetes mellitus with diabetic chronic kidney disease; E78.00 Pure hypercholesterolemia, unspecified; E03.9 Hypothyroidism, unspecified; R74.0 Nonspecific elevation of levels of transaminase and lactic acid dehydrogenase [LDH]; R13.10 Dysphagia, unspecified; F03.90 Unspecified dementia, unspecified severity, without behavioral disturbance, psychotic disturbance, mood disturbance, and anxiety; I25.118 Atherosclerotic heart disease of native coronary artery with other forms of angina pectoris; I25.2 Old myocardial infarction; N18.2 Chronic kidney disease, stage 2 (mild); R47.02 Dysphasia; Z79.4 Long term (current) use of insulin; Z86.73 Personal history of transient ischemic attack (TIA), and cerebral infarction without residual deficits; Z95.1 Presence of aortocoronary bypass graft; Z78.1 Physical restraint status; Z79.899 Other long term (current) drug therapy; Z79.82 Long term (current) use of aspirin; Z91.81 History of falling; R26.9 Unspecified abnormalities of gait and mobility; Z68.22 Body mass index [BMI] 22.0-22.9, adult
CPT/HCPCS: 36415; 36600; 70551; 71045; 71250; 74176; 76937; 80048; 80053; 80061; 80202; 80305; 80320; 81003; 82140; 82375; 82550; 82553; 82607; 82746; 82805; 82962; 83036; 83540; 83550; 83735; 83880; 84100; 84439; 84443; 84481; 84484; 85025; 85027; 87070; 87804; 92610; 93005; 93306; 93970; 94002; 94003; 94640; 94660; 97162; 97166; 97530; 97535; 99285; C1725; C9113; J0330; J1610; J1650; J1815; J1885; J1940; J2060; J2250; J3010; J3370; J3490; J7512; G0480

== ENCOUNTER 2019-04-06 17:50 | Inpatient (IN) | payer MEDICARE, MEDICAID ==
[~2019-04-06] VITALS: Ht 167.6 cm; Wt 68.0 kg
[~2019-04-06 17:50] MED LIST changes: -ACET-3161 PO; +ATOR20TA65 PO; +DILT180C87 PO; +DOCU-150 PO; +FOLI0.8T23 PO; +FURO20TA4 PO; -LINA1TAB PO; +LINA5TAB PO; -LUBI24CA5 PO; -MELO-106 PO; +NEBI10TA2 PO; +OLME40TA18 PO; -SIME125C PO; -TRAM50TA PO
[2019-04-06 18:36] VITALS: BP 144/48
[2019-04-06 20:00] VITALS: BP 144/48
[2019-04-06] MEDS ORDERED: DOCUSATE SODIUM 100MG CAPSULE PO SCH (20:30)
[2019-04-06] MEDS ORDERED: MAGNESIUM/ALUMINUM HYDROXIDE/SIMETHICONE 30ML UDC PO PRN (20:30)
[2019-04-06] MEDS ORDERED: IPRATROPIUM/ALBUTEROL 0.5-3(2.5)MG/3ML NEB HHN PRN (20:30)
[2019-04-06] MEDS ORDERED: NITROGLYCERIN 0.4MG TABLET SL SL PRN (20:30)
[2019-04-06] MEDS ORDERED: CLONIDINE 0.1MG TABLET PO PRN (20:30)
[2019-04-06] MEDS ORDERED: RACEPINEPHRINE 2.25% 0.5ML NEB VIAL HHN PRN (20:58)
[2019-04-06] MEDS: INSULIN LISPRO 100 UNITS/ML SUBCUT SCH (21:00)
[2019-04-06] MEDS ORDERED: ONDANSETRON HCL 4MG TABLET PO PRN (21:00)
[2019-04-06] MEDS ORDERED: DEXTROSE 50% WATER 50ML SYRINGE IV PRN (21:00)
[2019-04-06] MEDS: AMLODIPINE 5MG TABLET PO SCH (21:42)
[2019-04-06] MEDS: LOSARTAN POTASSIUM 50 MG TABLET PO SCH (21:42)
[2019-04-06] MEDS: SULFAMETHOXAZOLE/TRIMETHOPRIM 800/160MG TABLET PO SCH (21:42)
[2019-04-06] MEDS: DOXAZOSIN MESYLATE 2MG TABLET PO SCH (21:43)
[2019-04-06] MEDS: BLOOD SUGAR DIAGNOSTIC STRIP TEST SCH (21:43)
[2019-04-06] MEDS: FLUTICASONE PROPIONATE 50MCG/SPRAY BOTTLE BOTHNSTRLS SCH (22:00)
[2019-04-07] MEDS: IPRATROPIUM/ALBUTEROL 0.5-3(2.5)MG/3ML NEB HHN SCH ×6 (00:26→20:01)
[2019-04-07 06:50] LABS: HEMATOCRIT. 25.6 % (36.0-48.0); HEMOGLOBIN. 8.8 g/dL (12.0-16.0); MEAN CORPUSCULAR HEMOGLOBIN 31.9 pg (28.0-32.0); MEAN CORPUSCULAR VOLUME 92.5 fL (81.0-99.0); MEAN PLATELET VOLUME 8.8 fl (7.4-10.4); PLATELET 336 x1000/uL (130-400); RED BLOOD CELL COUNT 2.77 mill/uL (4.2-5.4); RED CELL DISTRIBUTION WIDTH 13.3 % (11.6-14.6)
[2019-04-07 07:07] LABS: CHLORIDE 108 mEq/L (98-107)
[2019-04-07] MEDS: BLOOD SUGAR DIAGNOSTIC STRIP TEST SCH ×4 (07:10→21:09)
[2019-04-07] MEDS: LEVOTHYROXINE SODIUM 88MCG TABLET PO SCH (07:10)
[2019-04-07] MEDS: INSULIN LISPRO 100 UNITS/ML SUBCUT SCH ×4 (07:13→21:00)
[2019-04-07 08:12] VITALS: BP 153/65
[2019-04-07] MEDS: ENOXAPARIN 30MG/0.3ML SYR SUBCUT SCH (08:48)
[2019-04-07] MEDS: ASPIRIN 325MG EC TABLET PO SCH (08:48)
[2019-04-07] MEDS: AMLODIPINE 5MG TABLET PO SCH ×2 (08:49→21:08)
[2019-04-07] MEDS: LOSARTAN POTASSIUM 50 MG TABLET PO SCH ×2 (08:49→21:07)
[2019-04-07] MEDS: SULFAMETHOXAZOLE/TRIMETHOPRIM 800/160MG TABLET PO SCH ×2 (08:49→21:07)
[2019-04-07] MEDS: FAMOTIDINE 20MG TABLET PO SCH (08:49)
[2019-04-07] MEDS: DOXAZOSIN MESYLATE 2MG TABLET PO SCH ×2 (08:49→21:08)
[2019-04-07] MEDS: FLUTICASONE PROPIONATE 50MCG/SPRAY BOTTLE BOTHNSTRLS SCH ×2 (08:50→21:07)
[2019-04-07] MEDS: INSULIN GLARGINE UD 100 UNITS/ML SYR SUBCUT SCH (10:58)
[2019-04-07] MEDS ORDERED: BISACODYL 10MG SUPP PR PRN (11:30)
[2019-04-07 12:39] LABS: PLATELET ESTIMATE NORMAL
[2019-04-07] MEDS: LACTULOSE 20G/30ML UDC PO PRN (14:24)
[2019-04-07 20:00] VITALS: BP 150/37
[2019-04-07] MEDS: GUAIFENESIN/DM 600MG/30MG ER TAB 12HR PO PRN (21:08)
[2019-04-07 22:02] VITALS: BP 153/44
[2019-04-07] MEDS: PHENOL/SODIUM PHENOLATE 1.4% SRPAY 177ML MM PRN (22:12)
[2019-04-08] MEDS: IPRATROPIUM/ALBUTEROL 0.5-3(2.5)MG/3ML NEB HHN SCH ×6 (00:04→20:43)
[2019-04-08] MEDS: INSULIN LISPRO 100 UNITS/ML SUBCUT SCH ×4 (05:20→20:06)
[2019-04-08] MEDS: BLOOD SUGAR DIAGNOSTIC STRIP TEST SCH ×4 (05:20→20:05)
[2019-04-08] MEDS: LEVOTHYROXINE SODIUM 88MCG TABLET PO SCH (06:00)
[2019-04-08 08:00] VITALS: BP 129/45
[2019-04-08] MEDS ORDERED: IPRATROPIUM/ALBUTEROL 0.5-3(2.5)MG/3ML NEB HHN STA (08:30)
[2019-04-08] MEDS: LOSARTAN POTASSIUM 50 MG TABLET PO SCH ×2 (09:29→20:05)
[2019-04-08] MEDS: ASPIRIN 325MG EC TABLET PO SCH (09:29)
[2019-04-08] MEDS: SULFAMETHOXAZOLE/TRIMETHOPRIM 800/160MG TABLET PO SCH ×2 (09:29→20:05)
[2019-04-08] MEDS: AMLODIPINE 5MG TABLET PO SCH ×2 (09:29→21:39)
[2019-04-08] MEDS: FAMOTIDINE 20MG TABLET PO SCH (09:29)
[2019-04-08] MEDS: DOXAZOSIN MESYLATE 2MG TABLET PO SCH ×2 (09:29→21:38)
[2019-04-08] MEDS: ENOXAPARIN 30MG/0.3ML SYR SUBCUT SCH (09:31)
[2019-04-08] MEDS: FLUTICASONE PROPIONATE 50MCG/SPRAY BOTTLE BOTHNSTRLS SCH ×2 (09:31→20:04)
[2019-04-08] MEDS: INSULIN GLARGINE UD 100 UNITS/ML SYR SUBCUT SCH (11:19)
[2019-04-08 16:30] VITALS: BP 140/39
[2019-04-08] MEDS: GUAIFENESIN/DM 600MG/30MG ER TAB 12HR PO PRN (19:56)
[2019-04-08] MEDS: PHENOL/SODIUM PHENOLATE 1.4% SRPAY 177ML MM PRN (19:57)
[2019-04-08 20:00] VITALS: BP 136/40
[2019-04-09] MEDS: IPRATROPIUM/ALBUTEROL 0.5-3(2.5)MG/3ML NEB HHN SCH ×6 (01:06→20:15)
[2019-04-09] MEDS: BLOOD SUGAR DIAGNOSTIC STRIP TEST SCH ×4 (05:58→21:07)
[2019-04-09] MEDS: LEVOTHYROXINE SODIUM 88MCG TABLET PO SCH (06:09)
[2019-04-09] MEDS: INSULIN LISPRO 100 UNITS/ML SUBCUT SCH ×4 (06:52→21:00)
[2019-04-09 07:31] LABS: HEMATOCRIT. 25.6 % (36.0-48.0); HEMOGLOBIN. 8.9 g/dL (12.0-16.0); MEAN CORPUSCULAR HEMOGLOBIN 32.1 pg (28.0-32.0); MEAN CORPUSCULAR VOLUME 92.5 fL (81.0-99.0); PLATELET 416 x1000/uL (130-400); RED BLOOD CELL COUNT 2.76 mill/uL (4.2-5.4); RED CELL DISTRIBUTION WIDTH 13.9 % (11.6-14.6)
[2019-04-09 08:00] VITALS: BP 154/44
[2019-04-09] MEDS: LACTULOSE 20G/30ML UDC PO SCH ×4 (09:30→17:00)
[2019-04-09] MEDS: SULFAMETHOXAZOLE/TRIMETHOPRIM 800/160MG TABLET PO SCH ×2 (09:31→21:01)
[2019-04-09] MEDS: FLUTICASONE PROPIONATE 50MCG/SPRAY BOTTLE BOTHNSTRLS SCH ×2 (09:32→21:01)
[2019-04-09] MEDS: DOXAZOSIN MESYLATE 2MG TABLET PO SCH ×2 (09:32→21:02)
[2019-04-09] MEDS: LOSARTAN POTASSIUM 50 MG TABLET PO SCH ×2 (09:32→21:01)
[2019-04-09] MEDS: AMLODIPINE 5MG TABLET PO SCH ×2 (09:33→21:02)
[2019-04-09] MEDS: ASPIRIN 325MG EC TABLET PO SCH (09:33)
[2019-04-09] MEDS: ENOXAPARIN 30MG/0.3ML SYR SUBCUT SCH (09:35)
[2019-04-09] MEDS: INSULIN GLARGINE UD 100 UNITS/ML SYR SUBCUT SCH (10:00)
[2019-04-09] MEDS: FAMOTIDINE 20MG TABLET PO SCH (11:16)
[2019-04-09 13:09] LABS: PLATELET ESTIMATE SLIGHTLY INCREASED
[2019-04-09] MEDS: DOCUSATE SODIUM 100MG CAPSULE PO SCH (17:30)
[2019-04-09 20:00] VITALS: BP 134/32
[2019-04-09] MEDS: POLYETHYLENE GLYCOL 3350 (17GM) 1 DOSE PACK PO SCH (21:01)
[2019-04-09] MEDS: ACETAMINOPHEN 325MG TABLET PO PRN (21:11)
[2019-04-10] MEDS: IPRATROPIUM/ALBUTEROL 0.5-3(2.5)MG/3ML NEB HHN SCH ×7 (00:07→20:43)
[2019-04-10] MEDS: BLOOD SUGAR DIAGNOSTIC STRIP TEST SCH ×4 (06:14→21:34)
[2019-04-10] MEDS: INSULIN LISPRO 100 UNITS/ML SUBCUT SCH ×4 (06:15→21:00)
[2019-04-10] MEDS: LEVOTHYROXINE SODIUM 88MCG TABLET PO SCH (06:43)
[2019-04-10 08:00] VITALS: BP 147/29
[2019-04-10] MEDS: AMLODIPINE 5MG TABLET PO SCH ×2 (09:00→21:29)
[2019-04-10] MEDS: FAMOTIDINE 20MG TABLET PO SCH (09:13)
[2019-04-10] MEDS: ASPIRIN 325MG EC TABLET PO SCH (09:13)
[2019-04-10] MEDS: ENOXAPARIN 30MG/0.3ML SYR SUBCUT SCH (09:13)
[2019-04-10] MEDS: LOSARTAN POTASSIUM 50 MG TABLET PO SCH ×2 (09:14→21:29)
[2019-04-10] MEDS: SULFAMETHOXAZOLE/TRIMETHOPRIM 800/160MG TABLET PO SCH ×2 (09:14→21:29)
[2019-04-10] MEDS: DOCUSATE SODIUM 100MG CAPSULE PO SCH ×2 (09:14→16:37)
[2019-04-10] MEDS: DOXAZOSIN MESYLATE 2MG TABLET PO SCH ×2 (09:14→21:29)
[2019-04-10] MEDS: FLUTICASONE PROPIONATE 50MCG/SPRAY BOTTLE BOTHNSTRLS SCH ×2 (09:15→21:31)
[2019-04-10] MEDS: INSULIN GLARGINE UD 100 UNITS/ML SYR SUBCUT SCH (09:58)
[2019-04-10] MEDS ORDERED: BISACODYL 5MG TABLET PO PRN (11:45)
[2019-04-10] MEDS ORDERED: SORBITOL 70% SOLN 30ML PO NR (15:15)
[2019-04-10] MEDS ORDERED: BISACODYL 10MG SUPP PR NR (15:15)
[2019-04-10] MEDS: LACTULOSE 20G/30ML UDC PO PRN (16:36)
[2019-04-10 20:00] VITALS: BP 152/50
[2019-04-10] MEDS: POLYETHYLENE GLYCOL 3350 (17GM) 1 DOSE PACK PO SCH (21:00)
[2019-04-10] MEDS: ZOLPIDEM TARTRATE 5MG TABLET PO PRN (23:02)
[2019-04-11] MEDS: IPRATROPIUM/ALBUTEROL 0.5-3(2.5)MG/3ML NEB HHN SCH ×6 (00:29→20:09)
[2019-04-11] MEDS: LEVOTHYROXINE SODIUM 88MCG TABLET PO SCH (06:20)
[2019-04-11] MEDS: BLOOD SUGAR DIAGNOSTIC STRIP TEST SCH ×4 (06:23→21:00)
[2019-04-11] MEDS: INSULIN LISPRO 100 UNITS/ML SUBCUT SCH ×4 (06:23→22:57)
[2019-04-11 08:00] VITALS: BP 154/38
[2019-04-11] MEDS: ASPIRIN 325MG EC TABLET PO SCH (08:15)
[2019-04-11] MEDS: FAMOTIDINE 20MG TABLET PO SCH (08:15)
[2019-04-11] MEDS: AMLODIPINE 5MG TABLET PO SCH ×2 (08:15→22:02)
[2019-04-11] MEDS: ENOXAPARIN 30MG/0.3ML SYR SUBCUT SCH (08:16)
[2019-04-11] MEDS: DOXAZOSIN MESYLATE 2MG TABLET PO SCH ×2 (08:16→22:01)
[2019-04-11] MEDS: FLUTICASONE PROPIONATE 50MCG/SPRAY BOTTLE BOTHNSTRLS SCH ×2 (08:16→21:58)
[2019-04-11] MEDS: SULFAMETHOXAZOLE/TRIMETHOPRIM 800/160MG TABLET PO SCH (08:16)
[2019-04-11] MEDS: DOCUSATE SODIUM 100MG CAPSULE PO SCH ×2 (08:16→17:00)
[2019-04-11] MEDS: LOSARTAN POTASSIUM 50 MG TABLET PO SCH ×2 (08:16→22:01)
[2019-04-11] MEDS: INSULIN GLARGINE UD 100 UNITS/ML SYR SUBCUT SCH (10:03)
[2019-04-11 20:00] VITALS: BP 150/39
[2019-04-11] MEDS: POLYETHYLENE GLYCOL 3350 (17GM) 1 DOSE PACK PO SCH (21:00)
[2019-04-11] MEDS: ZOLPIDEM TARTRATE 5MG TABLET PO PRN (22:01)
[2019-04-11] MEDS: SULFAMETHOXAZOLE/TRIMETHOPRIM 400/80MG TAB PO SCH (22:02)
[2019-04-12] MEDS: IPRATROPIUM/ALBUTEROL 0.5-3(2.5)MG/3ML NEB HHN SCH ×5 (00:22→20:08)
[2019-04-12] MEDS: LEVOTHYROXINE SODIUM 88MCG TABLET PO SCH (06:37)
[2019-04-12] MEDS: BLOOD SUGAR DIAGNOSTIC STRIP TEST SCH ×4 (06:37→21:00)
[2019-04-12] MEDS: INSULIN LISPRO 100 UNITS/ML SUBCUT SCH ×4 (06:37→21:00)
[2019-04-12 07:27] LABS: HEMATOCRIT. 24.9 % (36.0-48.0); HEMOGLOBIN. 8.4 g/dL (12.0-16.0); MEAN CORPUSCULAR HEMOGLOBIN 31.4 pg (28.0-32.0); MEAN CORPUSCULAR VOLUME 92.6 fL (81.0-99.0); PLATELET 386 x1000/uL (130-400); RED BLOOD CELL COUNT 2.69 mill/uL (4.2-5.4); RED CELL DISTRIBUTION WIDTH 13.7 % (11.6-14.6)
[2019-04-12 07:50] LABS: PHOSPHORUS 3.3 mg/dL (2.5-4.9)
[2019-04-12 08:00] VITALS: BP 142/41
[2019-04-12] MEDS: LOSARTAN POTASSIUM 50 MG TABLET PO SCH ×2 (09:44→22:40)
[2019-04-12] MEDS: DOCUSATE SODIUM 100MG CAPSULE PO SCH ×2 (09:44→16:49)
[2019-04-12] MEDS: SULFAMETHOXAZOLE/TRIMETHOPRIM 400/80MG TAB PO SCH ×2 (09:44→22:39)
[2019-04-12] MEDS: DOXAZOSIN MESYLATE 2MG TABLET PO SCH ×2 (09:45→22:40)
[2019-04-12] MEDS: FAMOTIDINE 20MG TABLET PO SCH (09:46)
[2019-04-12] MEDS: ENOXAPARIN 30MG/0.3ML SYR SUBCUT SCH (09:46)
[2019-04-12] MEDS: ASPIRIN 325MG EC TABLET PO SCH (09:46)
[2019-04-12] MEDS: AMLODIPINE 5MG TABLET PO SCH ×2 (09:46→22:40)
[2019-04-12] MEDS: FLUTICASONE PROPIONATE 50MCG/SPRAY BOTTLE BOTHNSTRLS SCH ×2 (09:47→22:42)
[2019-04-12] MEDS: INSULIN GLARGINE UD 100 UNITS/ML SYR SUBCUT SCH (10:00)
[2019-04-12 10:33] LABS: PLATELET ESTIMATE NORMAL
[2019-04-12] MEDS ORDERED: ALPRAZOLAM 0.25 MG TABLET PO PRN (15:30)
[2019-04-12] MEDS: SODIUM CHLORIDE 45ML SPRAY NS SCH ×2 (16:47→20:00)
[2019-04-12 19:12] LABS: CLARITY URINE CLEAR (CLEAR); COLOR URINE YELLOW (YELLOW); KETONES URINE NEGATIVE (NEGATIVE); LEUKOCYTE ESTERASE URINE NEGATIVE (NEGATIVE); NITRITE URINE NEGATIVE (NEGATIVE); OCCULT BLOOD URINE NEGATIVE (NEGATIVE); PROTEIN URINE NEGATIVE (NEGATIVE); SPECIFIC GRAVITY URINE 1.006 (1.005-1.030); UROBILINOGEN URINE 0.2 E.U./dL (0.2-1.0)
[2019-04-12 20:00] VITALS: BP 155/42
[2019-04-12] MEDS: POLYETHYLENE GLYCOL 3350 (17GM) 1 DOSE PACK PO SCH (21:00)
[2019-04-13] MEDS: IPRATROPIUM/ALBUTEROL 0.5-3(2.5)MG/3ML NEB HHN SCH ×6 (00:31→20:03)
[2019-04-13] MEDS: SODIUM CHLORIDE 45ML SPRAY NS SCH ×2 (01:10→06:20)
[2019-04-13] MEDS: BLOOD SUGAR DIAGNOSTIC STRIP TEST SCH ×4 (06:19→21:00)
[2019-04-13] MEDS: LEVOTHYROXINE SODIUM 88MCG TABLET PO SCH (06:19)
[2019-04-13 07:09] LABS: EOSINOPHILS % 3.4 % (0.0-5.0); HEMATOCRIT. 24.8 % (36.0-48.0); HEMOGLOBIN. 8.5 g/dL (12.0-16.0); LYMPHOCYTES % 21.5 % (20.0-50.0); MEAN CORPUSCULAR HEMOGLOBIN 31.6 pg (28.0-32.0); MEAN PLATELET VOLUME 8.1 fl (7.4-10.4); NEUTROPHILS % 62.1 % (40.0-76.0); PLATELET 371 x1000/uL (130-400); RED CELL DISTRIBUTION WIDTH 13.8 % (11.6-14.6)
[2019-04-13] MEDS: INSULIN LISPRO 100 UNITS/ML SUBCUT SCH ×5 (07:37→23:08)
[2019-04-13 07:38] LABS: CHLORIDE 105 mEq/L (98-107)
[2019-04-13 08:00] VITALS: BP 141/38
[2019-04-13 08:07] LABS: 25-HYDROXY VITAMIN D3 33 ng/mL (.)
[2019-04-13] MEDS: DOXAZOSIN MESYLATE 2MG TABLET PO SCH ×2 (08:43→22:43)
[2019-04-13] MEDS: ASPIRIN 325MG EC TABLET PO SCH (08:43)
[2019-04-13] MEDS: LOSARTAN POTASSIUM 50 MG TABLET PO SCH (08:43)
[2019-04-13] MEDS: SULFAMETHOXAZOLE/TRIMETHOPRIM 400/80MG TAB PO SCH ×2 (08:43→22:42)
[2019-04-13] MEDS: FAMOTIDINE 20MG TABLET PO SCH (08:43)
[2019-04-13] MEDS: DOCUSATE SODIUM 100MG CAPSULE PO SCH ×2 (08:43→17:16)
[2019-04-13] MEDS: ENOXAPARIN 30MG/0.3ML SYR SUBCUT SCH (08:44)
[2019-04-13] MEDS: AMLODIPINE 5MG TABLET PO SCH ×2 (08:44→22:42)
[2019-04-13] MEDS: FLUTICASONE PROPIONATE 50MCG/SPRAY BOTTLE BOTHNSTRLS SCH (08:44)
[2019-04-13] MEDS: LACTULOSE 20G/30ML UDC PO PRN (08:52)
[2019-04-13] MEDS: INSULIN GLARGINE UD 100 UNITS/ML SYR SUBCUT SCH (11:05)
[2019-04-13] MEDS: ACETAMINOPHEN 325MG TABLET PO PRN (14:58)
[2019-04-13 20:00] VITALS: BP 117/37
[2019-04-13] MEDS ORDERED: ERGOCALCIFEROL 50000UNITS CAPSULE PO SCH (20:00)
[2019-04-13] MEDS: POLYETHYLENE GLYCOL 3350 (17GM) 1 DOSE PACK PO SCH (22:44)
[2019-04-14] MEDS: IPRATROPIUM/ALBUTEROL 0.5-3(2.5)MG/3ML NEB HHN SCH ×5 (01:37→20:14)
[2019-04-14] MEDS: BLOOD SUGAR DIAGNOSTIC STRIP TEST SCH ×4 (07:05→21:00)
[2019-04-14] MEDS: LEVOTHYROXINE SODIUM 88MCG TABLET PO SCH (07:06)
[2019-04-14 08:00] VITALS: BP 151/46
[2019-04-14] MEDS: FAMOTIDINE 20MG TABLET PO SCH (09:14)
[2019-04-14] MEDS: DOCUSATE SODIUM 100MG CAPSULE PO SCH ×2 (09:14→16:55)
[2019-04-14] MEDS: AMLODIPINE 5MG TABLET PO SCH ×2 (09:14→22:19)
[2019-04-14] MEDS: ASPIRIN 325MG EC TABLET PO SCH (09:14)
[2019-04-14] MEDS: ENOXAPARIN 30MG/0.3ML SYR SUBCUT SCH (09:14)
[2019-04-14] MEDS: DOXAZOSIN MESYLATE 2MG TABLET PO SCH ×2 (09:14→22:18)
[2019-04-14] MEDS: INSULIN GLARGINE UD 100 UNITS/ML SYR SUBCUT SCH (10:50)
[2019-04-14] MEDS: INSULIN LISPRO 100 UNITS/ML SUBCUT SCH ×2 (12:43→16:55)
[2019-04-14 20:00] VITALS: BP 164/42
[2019-04-14] MEDS: POLYETHYLENE GLYCOL 3350 (17GM) 1 DOSE PACK PO SCH (22:19)
[2019-04-15] MEDS: INSULIN LISPRO 100 UNITS/ML SUBCUT SCH ×5 (00:01→21:51)
[2019-04-15] MEDS: IPRATROPIUM/ALBUTEROL 0.5-3(2.5)MG/3ML NEB HHN SCH ×5 (00:30→15:38)
[2019-04-15] MEDS: BLOOD SUGAR DIAGNOSTIC STRIP TEST SCH ×4 (06:39→21:37)
[2019-04-15] MEDS: LEVOTHYROXINE SODIUM 88MCG TABLET PO SCH (06:56)
[2019-04-15 08:00] VITALS: BP 140/31
[2019-04-15] MEDS: ASPIRIN 325MG EC TABLET PO SCH (08:53)
[2019-04-15] MEDS: DOCUSATE SODIUM 100MG CAPSULE PO SCH ×2 (08:53→17:18)
[2019-04-15] MEDS: AMLODIPINE 5MG TABLET PO SCH ×2 (08:53→21:37)
[2019-04-15] MEDS: FAMOTIDINE 20MG TABLET PO SCH (08:53)
[2019-04-15] MEDS: DOXAZOSIN MESYLATE 2MG TABLET PO SCH ×2 (08:53→21:36)
[2019-04-15] MEDS: ENOXAPARIN 30MG/0.3ML SYR SUBCUT SCH (08:55)
[2019-04-15] MEDS: INSULIN GLARGINE UD 100 UNITS/ML SYR SUBCUT SCH (11:06)
[2019-04-15] MEDS: LORATADINE 10MG TABLET PO SCH (11:11)
[2019-04-15] MEDS: LACTULOSE 20G/30ML UDC PO PRN (17:17)
[2019-04-15 20:00] VITALS: BP 135/42
[2019-04-15] MEDS: FLUTICASONE PROPIONATE 50MCG/SPRAY BOTTLE BOTHNSTRLS SCH (21:37)
[2019-04-15] MEDS: POLYETHYLENE GLYCOL 3350 (17GM) 1 DOSE PACK PO SCH (21:37)
[2019-04-16] MEDS: IPRATROPIUM/ALBUTEROL 0.5-3(2.5)MG/3ML NEB HHN SCH ×5 (03:01→21:27)
[2019-04-16] MEDS: LEVOTHYROXINE SODIUM 88MCG TABLET PO SCH (06:44)
[2019-04-16] MEDS: BLOOD SUGAR DIAGNOSTIC STRIP TEST SCH ×4 (06:46→21:05)
[2019-04-16] MEDS: INSULIN LISPRO 100 UNITS/ML SUBCUT SCH ×4 (06:46→21:00)
[2019-04-16 06:57] LABS: BASOPHILS % 0.8 % (0.0-2.0); EOSINOPHILS % 3.5 % (0.0-5.0); HEMOGLOBIN. 9.1 g/dL (12.0-16.0); LYMPHOCYTES % 19.4 % (20.0-50.0); MEAN CORPUSCULAR HEMOGLOBIN 31.3 pg (28.0-32.0); MEAN CORPUSCULAR VOLUME 93.3 fL (81.0-99.0); MEAN PLATELET VOLUME 8.4 fl (7.4-10.4); MONOCYTES % 10.1 % (2.0-8.0); NEUTROPHILS % 66.2 % (40.0-76.0); PLATELET 363 x1000/uL (130-400); RED CELL DISTRIBUTION WIDTH 14.3 % (11.6-14.6)
[2019-04-16 08:00] VITALS: BP 161/44
[2019-04-16] MEDS: DOCUSATE SODIUM 100MG CAPSULE PO SCH ×3 (09:00→17:00)
[2019-04-16] MEDS: ASPIRIN 325MG EC TABLET PO SCH (09:24)
[2019-04-16] MEDS: DOXAZOSIN MESYLATE 2MG TABLET PO SCH ×2 (09:24→21:04)
[2019-04-16] MEDS: FAMOTIDINE 20MG TABLET PO SCH (09:24)
[2019-04-16] MEDS: ENOXAPARIN 30MG/0.3ML SYR SUBCUT SCH (09:24)
[2019-04-16] MEDS: AMLODIPINE 5MG TABLET PO SCH ×2 (09:24→21:04)
[2019-04-16] MEDS: LORATADINE 10MG TABLET PO SCH (09:24)
[2019-04-16] MEDS: FLUTICASONE PROPIONATE 50MCG/SPRAY BOTTLE BOTHNSTRLS SCH ×2 (09:34→21:03)
[2019-04-16] MEDS: INSULIN GLARGINE UD 100 UNITS/ML SYR SUBCUT SCH (09:37)
[2019-04-16] MEDS: BENZONATATE 100MG CAPSULE PO PRN (19:34)
[2019-04-16] MEDS: SODIUM CHLORIDE 45ML SPRAY NS PRN (19:35)
[2019-04-16 19:55] VITALS: BP 152/46
[2019-04-16] MEDS: POLYETHYLENE GLYCOL 3350 (17GM) 1 DOSE PACK PO SCH (21:00)
[2019-04-17] MEDS: IPRATROPIUM/ALBUTEROL 0.5-3(2.5)MG/3ML NEB HHN SCH ×7 (01:00→21:41)
[2019-04-17] MEDS: LEVOTHYROXINE SODIUM 88MCG TABLET PO SCH (06:23)
[2019-04-17] MEDS: BENZONATATE 100MG CAPSULE PO PRN (06:23)
[2019-04-17] MEDS: SODIUM CHLORIDE 45ML SPRAY NS PRN (06:26)
[2019-04-17] MEDS: BLOOD SUGAR DIAGNOSTIC STRIP TEST SCH ×4 (06:26→21:18)
[2019-04-17] MEDS: INSULIN LISPRO 100 UNITS/ML SUBCUT SCH ×4 (06:42→21:51)
[2019-04-17 08:00] VITALS: BP 148/34
[2019-04-17] MEDS: FAMOTIDINE 20MG TABLET PO SCH (09:45)
[2019-04-17] MEDS: DOCUSATE SODIUM 100MG CAPSULE PO SCH ×2 (09:45→16:46)
[2019-04-17] MEDS: ENOXAPARIN 30MG/0.3ML SYR SUBCUT SCH (09:45)
[2019-04-17] MEDS: AMLODIPINE 5MG TABLET PO SCH ×2 (09:45→20:41)
[2019-04-17] MEDS: ASPIRIN 325MG EC TABLET PO SCH (09:45)
[2019-04-17] MEDS: DOXAZOSIN MESYLATE 2MG TABLET PO SCH ×2 (09:45→20:41)
[2019-04-17] MEDS: FLUTICASONE PROPIONATE 50MCG/SPRAY BOTTLE BOTHNSTRLS SCH ×2 (09:45→20:41)
[2019-04-17] MEDS: LORATADINE 10MG TABLET PO SCH (09:45)
[2019-04-17] MEDS: INSULIN GLARGINE UD 100 UNITS/ML SYR SUBCUT SCH (10:03)
[2019-04-17 20:00] VITALS: BP 157/43
[2019-04-17] MEDS: POLYETHYLENE GLYCOL 3350 (17GM) 1 DOSE PACK PO SCH (20:40)
[2019-04-18] MEDS ORDERED: ALPRAZOLAM 0.25 MG TABLET PO PRN (01:15)
[2019-04-18] MEDS: IPRATROPIUM/ALBUTEROL 0.5-3(2.5)MG/3ML NEB HHN SCH ×3 (01:39→11:12)
[2019-04-18] MEDS: LEVOTHYROXINE SODIUM 88MCG TABLET PO SCH (06:08)
[2019-04-18] MEDS: BLOOD SUGAR DIAGNOSTIC STRIP TEST SCH (06:08)
[2019-04-18] MEDS: INSULIN LISPRO 100 UNITS/ML SUBCUT SCH (06:16)
[2019-04-18 08:17] VITALS: BP 137/47
[2019-04-18] MEDS: ENOXAPARIN 30MG/0.3ML SYR SUBCUT SCH (09:03)
[2019-04-18] MEDS: ASPIRIN 325MG EC TABLET PO SCH (09:04)
[2019-04-18] MEDS: DOCUSATE SODIUM 100MG CAPSULE PO SCH (09:04)
[2019-04-18] MEDS: FAMOTIDINE 20MG TABLET PO SCH (09:04)
[2019-04-18] MEDS: DOXAZOSIN MESYLATE 2MG TABLET PO SCH (09:04)
[2019-04-18] MEDS: AMLODIPINE 5MG TABLET PO SCH (09:04)
[2019-04-18] MEDS: LORATADINE 10MG TABLET PO SCH (09:04)
[2019-04-18] MEDS: FLUTICASONE PROPIONATE 50MCG/SPRAY BOTTLE BOTHNSTRLS SCH (09:05)
[2019-04-18 10:19] VITALS: BP 137/47
[2019-04-18] MEDS: INSULIN GLARGINE UD 100 UNITS/ML SYR SUBCUT SCH (11:10)
== END 2019-04-18 11:00 | disposition home health service (06) | DRG 91 ==
PROVIDERS: ADMIT Physical Medicine & Rehabilitation Spinal Cord Injury Medicine; ATTEND Internal Medicine
DX: G92 Toxic encephalopathy (principal); I21.4 Non-ST elevation (NSTEMI) myocardial infarction; J18.9 Pneumonia, unspecified organism; J96.00 Acute respiratory failure, unspecified whether with hypoxia or hypercapnia; E44.0 Moderate protein-calorie malnutrition; L03.113 Cellulitis of right upper limb; N17.9 Acute kidney failure, unspecified; D63.8 Anemia in other chronic diseases classified elsewhere; E03.9 Hypothyroidism, unspecified; E11.65 Type 2 diabetes mellitus with hyperglycemia; Z68.24 Body mass index [BMI] 24.0-24.9, adult; E78.00 Pure hypercholesterolemia, unspecified; E78.5 Hyperlipidemia, unspecified; E83.51 Hypocalcemia; I10 Essential (primary) hypertension; I25.118 Atherosclerotic heart disease of native coronary artery with other forms of angina pectoris; J00 Acute nasopharyngitis [common cold]; R13.10 Dysphagia, unspecified; I27.20 Pulmonary hypertension, unspecified; Z86.73 Personal history of transient ischemic attack (TIA), and cerebral infarction without residual deficits; Z95.1 Presence of aortocoronary bypass graft
CPT/HCPCS: 36415; 71045; 76770; 80048; 80053; 81003; 82306; 82962; 83036; 83735; 84100; 84134; 85025; 92523; 92610; 93970; 94640; 97110; 97112; 97116; 97162; 97166; 97530; 97535; J1650; J1815